=== PATIENT | male | born 2000 | race Caucasian/White ===

== ENCOUNTER → 2024-03-28 | Outpatient (CLI) | payer BC ==
--- NOTE | 2024-03-28 15:58 | US ---
EXAMINATION TYPE: US mass soft tissue chest/back DATE OF EXAM: 03/28/2024 COMPARISON: NONE CLINICAL INDICATION: Male, 23 years old with history of R22.2 LOCALIZED SWELLING, MASS AND LUMP, TRUN K; Lump x 1 year that causes intermittent pain TECHNIQUE: Grayscale and color Doppler imaging of the area of concern of the back. FINDINGS: Heterogenous area at patients AOC = 2.1 x 0.4 x 3.0 cm IMPRESSION: Soft tissue mass just deep to the subcutaneous tissues possibly representing a lipoma. Co nsider confirmation with CT with palpable marker placement. [facility], , 03/28/2024 3:55 PM
== END | disposition home or self-care (01) ==
LOC: RADUSWWP 14:56
PROVIDERS: ATTEND Family Medicine
DX: R22.2 Localized swelling, mass and lump, trunk (principal)

== ENCOUNTER 2024-05-03 14:33 | Day surgery (SDC) | payer BC ==
--- NOTE | 2024-05-03 09:41 | P.GSHP ---
History of Present Illness H&P Date: 05/03/24 CHIEF COMPLAINT: Back mass HISTORY OF PRESENT ILLNESS: The patient is a 23 year-old male with history of mass along the mid back. He presents today for surgical excision. PAST MEDICAL HISTORY: Please see list. PAST SURGICAL HISTORY: Please see list. MEDICATIONS: Please see list. ALLERGIES: Please see list. SOCIAL HISTORY: Please see list. FAMILY HISTORY: No reports of Crohn disease or ulcerative colitis. REVIEW OF ORGAN SYSTEMS: CONSTITUTIONAL: No reports of fevers or chills. GI: Denies any blood in stools or constipation. PHYSICAL EXAM: VITAL SIGNS: Stable Musculoskeletal: No clubbing cyanosis or edema SKIN: Mid back lesion 5 cm GENERAL: Well developed and in no acute distress. Pleasant. HEENT: No sclera icterus. Extraocular movements grossly intact. Moist buccal mucosa. Head is atraumatic, normocephalic. Hears conversational speech. No nasal drainage. NECK: Supple without lymphadenopathy. No JV distention. CHEST: Non-labored respirations and equal bilateral excursions. CARDIOVASCULAR: Regular rate and rhythm. Palpable 2+ radial pulses. ABDOMEN: Soft. Non-tender. Nondistended. NEUROLOGIC: No focal or lateralizing signs. PSYCH: Appropriate affect. Alert and oriented to person, place and time. ASSESSMENT: 1. Mid back mass PLAN: 1. Will proceed of excision of subcutaneous tumor along the back. 2. DVT prophylaxis. 3. Antibiotic prophylaxis. 4. Time of recovery, at least one week. Past Medical History Past Medical History: Asthma Additional Past Medical History / Comment(s): asthma as a child History of Any Multi-Drug Resistant Organisms: None Reported Additional Past Surgical History / Comment(s): wisdom teeth; surg for [facility] in 2019 Past Anesthesia/Blood Transfusion Reactions: No Reported Reaction Additional Past Anesthesia/Blood Transfusion Reaction / Comment(s): woke up during surg for [facility] Smoking Status: Former smoker - Past Family History Mother Family Medical History: Liver Disease Father Family Medical History: No Reported History Medications and Allergies Home Medications Medication Instructions Recorded Confirmed Type No Known Home Medications 05/01/24 05/01/24 History Allergies Allergy/AdvReac Type Severity Reaction Status Date / Time No Known Allergies Allergy Verified 05/01/24 14:55
[~2024-05-03 14:33] MED LIST: HYDROmorphone 0.5 MG/0.5 ML SYRINGE IVP PRN; LIDOCAINE 1% (10MG/ML) FOR IV START INTRADERMA PRN; MIDAZOLAM 2 MG/2 ML VIAL IV PRN; ONDANSETRON 4 MG/2 ML VIAL IVP PRN; Pre Op ABX Message 1 EACH MISC MISCELLANE ONE; fentaNYL (PF) 50 MCG/ML 2 ML AMP IVP PRN
[2024-05-03] MEDS: IV FLUID CONTINUATION 1,000 ML IV ONE (14:51)
[2024-05-03] MEDS: LACTATED RINGERS 1,000 ML IV SCH (15:02)
[2024-05-03] MEDS: ACETAMINOPHEN TAB 500 MG TAB PO PRN (15:02)
[2024-05-03] MEDS: ONDANSETRON 4 MG/2 ML VIAL IVP ONE (15:03)
[2024-05-03] MEDS: DEXAMETHASONE SOD PHOSPHATE 4 MG/ML 1 ML VIAL IV ONE (15:03)
[2024-05-03] MEDS: HEPARIN SODIUM,PORCINE 5,000 UNIT/ML 1 ML VIAL SQ PRN (15:03)
[2024-05-03 15:11] LABS: Basophils % (A) 0 %; Eosinophils # (A) 0.2 k/uL (0-0.7); Eosinophils % (A) 3 %; HCT 44.2 % (39.0-53.0); HGB 14.7 gm/dL (13.0-17.5); Lymphocytes # (A) 2.6 k/uL (1.0-4.8); Lymphocytes % (A) 42 %; MCH 30.5 pg (25.0-35.0); MCHC 33.4 g/dL (31.0-37.0); MCV 91.4 fL (80.0-100.0); Mean Platelet Volume 8.5; Monocytes # (A) 0.4 k/uL (0-1.0); Monocytes % (A) 6 %; Neutrophils # (A) 2.9 k/uL (1.3-7.7); Neutrophils % (A) 47 %; Platelet Count 223 k/uL (150-450); RBC 4.83 m/uL (4.30-5.90); RDW 12.5 % (11.5-15.5); WBC 6.1 k/uL (3.8-10.6)
[2024-05-03] MEDS ORDERED: ceFAZolin 1 GM/50 ML BAG (PMX) ONE (15:15)
[2024-05-03] MEDS ORDERED: MIDAZOLAM 2 MG/2 ML VIAL ONE (15:15)
[2024-05-03] MEDS ORDERED: PROPOFOL 10 MG/ML 20 ML VIAL IV ONE (15:15)
[2024-05-03] MEDS ORDERED: fentaNYL (PF) 50 MCG/ML 2 ML AMP ONE (15:15)
[2024-05-03] MEDS ORDERED: LIDOCAINE 1% INJ 10MG/ML (20 ML MDV) ONE (15:15)
[2024-05-03] MEDS ORDERED: PHENYLEPHRINE 10 MG/ML VIAL ONE (15:15)
[2024-05-03] MEDS ORDERED: SUCCINYLCHOLINE CHLORIDE 200 MG/10 ML VIAL IV ONE (15:15)
[2024-05-03] MEDS: SODIUM CHLORIDE 0.9% 50 ML with ceFAZolin 2,000 MG IV ONE (15:35)
[2024-05-03] MEDS: LIDOCAINE 1%-EPI 1:100,000 20 ML VIAL SQ ONE (15:39)
[2024-05-03] MEDS: LACTATED RINGERS 1,000 ML IV ONE (16:02)
[2024-05-03 16:22] VITALS: TEMP 97.5
[2024-05-03 16:47] VITALS: RESP 16
[2024-05-03 17:22] VITALS: BP 113/76; PULSE 62
--- NOTE | 2024-05-03 22:01 | P.OP ---
Date of Procedure: 05/03/24 Description of Procedure: SURGEON: NIYA WALKER MD INSTRUMENTATION CONTROLS ENGINEER: None. PREOPERATIVE DIAGNOSES: 1. Left lower medial back mass POSTOPERATIVE DIAGNOSES: 1. Left lower medial back mass, lipoma, 5 x 3 cm PROCEDURES PERFORMED: 1. Excision of deep subfascial/submuscular left lower mid back mass, 5 x 3 cm 2. Complex four layer closure left lower back incision, 7-cm Anesthesia: GETA, local Estimated Blood Loss (ml): 5 Pathology: other (back mass) Condition: stable Disposition: same day COMPLICATIONS: None. Operative Findings: 1. Excision of deep subfascial/intramuscular lipoma left lower medial back tumor 5 x 3 cm INDICATIONS: The patient is a 23-year-old male who presents with symptomatic left lower mid back tumor. Benefits and risks of surgical intervention were described including bleeding, infection, seroma, pain and recurrence. Informed consent was obtained. DESCRIPTION OR PROCEDURE: In the preoperative area, the area of concern was marked with indelible marker. Patient was brought into the operating room. After general induction, he was positioned in right lateral decubitus position. The back was prepped and draped in a standard sterile fashion with ChloraPrep. Timeout protocol was confirmed with the surgical team regarding the patient's name, procedure to be performed including preoperative medications. DVT prophylaxis was confirmed. A field block was placed of the left lower back. An transverse incision using #15 blade was made along the marking into the dermis and subcutaneous tissue. Electro-Bovie cautery was used to enter deep into the fascia including muscle where a fatty tumor was removed in total of 5 x 3 cm. 0 Vicryl for the fascia and deep subcutaneous tissue followed by 0 Vicryl for the subcutaneous tissue was placed in interrupted fashion. 3-0 Monocryl in a running subcuticular fashion was placed along the dermis. The skin was cleansed and Dermabond tape with liquid was applied for a four layer closure. The incision was covered with Optifoam dressing 4 x 8 cm. At the end of the procedure, needle, sponge, and instrument count was verified correct by surgical services asst. The patient tolerated the procedure well. Plan - Discharge Summary Discharge Rx Participant: No New Discharge Prescriptions: New Ibuprofen [Motrin] 600 mg PO Q8HR PRN #30 tab PRN Reason: Pain Acetaminophen Tab [Tylenol Tab] 1,000 mg PO Q6HR PRN #30 tablet PRN Reason: Pain Discharge Medication List Acetaminophen Tab [Tylenol Tab] 1,000 mg PO Q6HR PRN #30 tablet 05/03/24 [Rx] Ibuprofen [Motrin] 600 mg PO Q8HR PRN #30 tab 05/03/24 [Rx] Follow up Appointment(s)/Referral(s): Niya Walker MD [STAFF PHYSICIAN] - 06/12/24 4:30 pm Patient Instructions/Handouts: *Surgery [facility] - (Anesthesia) Discharge Instructions Outpatient Surgery, Soft Tissue Mass (ED), Lipoma Removal (DC) Activity/Diet/Wound Care/Special Instructions: NO BENDING AT THE HIPS WHILE SITTING FOR 2 WEEKS, 05/17/24 NO EXTREME STRETCHING OF THE BACK FOR 2 WEEKS, 05/17/24 See instructions on dressing. DO NOT REMOVE DRESSING. No lifting over 10 pounds in 2 weeks, FOR 2 WEEKS, 05/17/24 May shower. No bath tub soaks for two weeks, FOR 2 WEEKS, 05/17/24 Diet as tolerated. Use ice along incision every 30 minutes for 3 days Discharge Disposition: HOME SELF-CARE
== END 2024-05-03 17:48 | disposition home or self-care (01) ==
LOC: OR 14:33
PROVIDERS: ATTEND Surgery Plastic and Reconstructive Surgery
DX: D17.1 Benign lipomatous neoplasm of skin and subcutaneous tissue of trunk (principal); J45.909 Unspecified asthma, uncomplicated; Z87.891 Personal history of nicotine dependence
CPT/HCPCS: 21931; 85025; 88307; J2250; J0330; J1644; J1100; J2405; J0690 ×2; J2003; J3010; J2704; J2371